=== PATIENT | male | born 1965 | race Caucasian/White ===

== ENCOUNTER 2021-07-19 03:48 | Inpatient (IN) | payer OTHER ==
[~2021-07-19] VITALS: Ht 177.8 cm; Wt 95.3 kg
[2021-07-19 06:13] LABS: RED BLOOD COUNT 4.67 M/UL (4.20-5.50); WHITE BLOOD COUNT 5.8 K/UL (4.5-11.0)
[2021-07-19 06:46] LABS: BUN/CREATININE RATIO 20 (0-10)
[2021-07-19] MEDS ORDERED: BUTALBITAL-ASP1 EACH PO (09:56)
[2021-07-19] MEDS ORDERED: ASPIRIN EC325 MG PO (09:56)
[2021-07-19] MEDS ORDERED: VITAMIN D325 MCG PO (09:56)
[2021-07-19] MEDS ORDERED: CYCLOBENZAPRINE10 MG PO (09:57)
[2021-07-19] MEDS ORDERED: CLOPIDOGREL75 MG PO (09:57)
[2021-07-19] MEDS ORDERED: B-121000 MCG PO (09:57)
[2021-07-19] MEDS ORDERED: ARTHRITIS PAIN50 GM TOP (09:58)
[2021-07-19] MEDS ORDERED: GABAPENTIN800 MG PO (09:58)
[2021-07-19] MEDS ORDERED: TRICOR 145 MG145 MG PO (09:58)
[2021-07-19] MEDS ORDERED: LORATADINE10 MG PO (10:00)
[2021-07-19] MEDS ORDERED: LOSARTAN POTASS25 MG PO (10:00)
[2021-07-19] MEDS ORDERED: METOPROLOL TAR100 MG PO (10:00)
[2021-07-19] MEDS ORDERED: HYDROCODON-ACE1 EAC6 PO ×2 (10:00→11:00)
[2021-07-19] MEDS ORDERED: MONTELUKAST SOD10 MG PO (10:01)
[2021-07-19] MEDS ORDERED: SIMVASTATIN20 MG PO (10:01)
[2021-07-19] MEDS ORDERED: OMEGA-3 ACID ETH1 GM PO (10:01)
[2021-07-19] MEDS ORDERED: ASPIRIN EC81 MG PO (10:01)
[2021-07-20 06:26] LABS: HEMOGLOBIN 13.7 gm/dl (14.0-17.5); RED BLOOD COUNT 4.61 M/UL (4.20-5.50); WHITE BLOOD COUNT 6.6 K/UL (4.5-11.0)
[2021-07-20 06:50] LABS: BUN/CREATININE RATIO 19 (0-10)
[2021-07-21 04:42] LABS: HEMOGLOBIN 13.2 gm/dl (14.0-17.5); RED BLOOD COUNT 4.5 M/UL (4.20-5.50); WHITE BLOOD COUNT 5.5 K/UL (4.5-11.0)
[2021-07-21 05:15] LABS: BUN/CREATININE RATIO 18 (0-10)
[2021-07-22 07:12] LABS: BUN/CREATININE RATIO 17 (0-10)
[2021-07-22 07:53] LABS: HEMOGLOBIN 12.7 gm/dl (14.0-17.5); RED BLOOD COUNT 4.28 M/UL (4.20-5.50); WHITE BLOOD COUNT 6.1 K/UL (4.5-11.0)
[2021-07-22] MEDS ORDERED: ATORVASTATIN CA80 MG PO (11:06)
[2021-07-22] MEDS ORDERED: COZAAR 50MG TAB50 MG PO (11:06)
== END 2021-07-22 12:44 | disposition home or self-care (01) | DRG 247 ==
LOC: ER1 03:48 → CDU 08:31 → M/S 08:31 → CDU 08:31 → M/S 16:51 → PROG CARE 07-21 10:16 → M/S 07-21 10:16 → PROG CARE 07-21 13:39
PROVIDERS: Family Medicine; Physician Assistant Medical; ADMIT Internal Medicine
PROC: 027034Z Dilation of Coronary Artery, One Artery with Drug-eluting Intraluminal Device, Percutaneous Approach (ICD-10-PCS; principal; 2021-07-21)
PROC: 4A023N7 Measurement of Cardiac Sampling and Pressure, Left Heart, Percutaneous Approach (ICD-10-PCS; 2021-07-21)
PROC: B2111ZZ Fluoroscopy of Multiple Coronary Arteries using Low Osmolar Contrast (ICD-10-PCS; 2021-07-21)
PROC: B241ZZ3 Ultrasonography of Multiple Coronary Arteries, Intravascular (ICD-10-PCS; 2021-07-21)
DX: T82.855A Stenosis of coronary artery stent, initial encounter (principal); I10 Essential (primary) hypertension; M19.90 Unspecified osteoarthritis, unspecified site; E53.8 Deficiency of other specified B group vitamins; I25.119 Atherosclerotic heart disease of native coronary artery with unspecified angina pectoris; E78.5 Hyperlipidemia, unspecified; F17.200 Nicotine dependence, unspecified, uncomplicated; E55.9 Vitamin D deficiency, unspecified; I25.2 Old myocardial infarction; Y83.8 Other surgical procedures as the cause of abnormal reaction of the patient, or of later complication, without mention of misadventure at the time of the procedure
CPT/HCPCS: ECHO; 36415; 71045; 78452; 80048; 80053; 80061; 82550; 82553; 83735; 84484; 85025; 85027; 85347; 92978; 93005; 93017; 93306; 99152; 99153; 99285; A9502; C1725; C1753; C1769; C1874; C1887; C1894; C9600; G0378; J1644; J2250; J2785; J3010; J7040; Q9967